=== PATIENT | female | born 1990 | race Two or more races ===

== ENCOUNTER 2016-06-25 13:43 | Emergency (ER) | payer BC ==
[~2016-06-25] VITALS: Ht 157.5 cm; Wt 61.2 kg
[2016-06-25] MEDS ORDERED: Methocarbamol 750mg tab ORAL ONE (14:15)
[2016-06-25] MEDS ORDERED: IBUPROFEN600 MG ORAL (16:09)
[2016-06-25] MEDS ORDERED: ROBAXIN-750750 MG PO (16:09)
[2016-06-25 16:16] VITALS: BP 125/75
[2016-06-25 16:17] VITALS: BP 122/76
--- NOTE | 2016-06-25 16:39 | Diagnostic Imaging Report ---
Indication: PAIN Technique: 3 views of the left shoulder Comparison: none Findings: No acute fractures. No dislocations. Joint spaces are preserved Impression:Negative
--- NOTE | 2016-06-25 16:40 | Diagnostic Imaging Report ---
Indications: PAIN Technique: 3 views of the thoracic spine Comparison: None Findings: Normal alignment. No acute fractures. No dislocations. Vertebral body heights and disc spaces are preserved. Pedicles are intact. No gross paraspinous mass. Impression: No acute process
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
== END 2016-06-25 16:19 | disposition home or self-care (01) ==
LOC: EDBD 13:43 → EMR 14:20
DX: S46.912A Strain of unspecified muscle, fascia and tendon at shoulder and upper arm level, left arm, initial encounter (principal); V43.52XA Car driver injured in collision with other type car in traffic accident, initial encounter; Y92.410 Unspecified street and highway as the place of occurrence of the external cause; Y99.8 Other external cause status
CPT/HCPCS: 29240; 72070; 99284